=== PATIENT | male | born 1995 | race Caucasian/White ===

== ENCOUNTER 2018-11-13 18:28 | Emergency (ER) | payer SELFPAY ==
[~2018-11-13] VITALS: Ht 170.2 cm; Wt 61.4 kg
[2018-11-13 19:13] VITALS: Ht 170.2 cm; Wt 61.4 kg
[2018-11-13] MEDS ORDERED: ZPAK PO (20:22)
[2018-11-13] MEDS ORDERED: STERAPRED DS 1010 MG PO (20:22)
[2018-11-13 22:53] VITALS: BP 120/73
== END 2018-11-13 22:53 | disposition home or self-care (01) ==
LOC: D.ER 18:28
DX: H66.92 Otitis media, unspecified, left ear (principal); F17.210 Nicotine dependence, cigarettes, uncomplicated